=== PATIENT | male | born 1990 | race American Indian/Alaskan Native ===

== ENCOUNTER 2018-06-08 01:07 | Emergency (ER) | payer SELFPAY ==
[2018-06-08] MEDS ORDERED: NACL 0.9% 1000 ML 1,000 ML IV ONE ×2 (01:16→03:02)
--- NOTE | 2018-06-08 01:27 | Emergency Department Report ---
History of Present Illness - General Chief Complaint: Overdose Stated Complaint: POSS OVERDOSE Time Seen by Provider: 06/08/18 01:16 Source: patient, EMS Mode of arrival: Stretcher Limitations: Other - History of Present Illness Initial Comments: Mr Nguyen is a 27 year-old man with hx of drug use who presents via EMS after accidental overdose. Injected heroin for the first time tonight. When EMs arrived, he was cyanotic and not breathing. inserted nasal trumpet and started ventilating him. 4mg narcan. Slowly woke up. Now he is AAOx3. reports trying to get high, does not want to hurt himself. Once attempted to harm self 6 years ago , but was "a cry for help." No thoughts of SI now. No HI. no hallucinations. Took xanax by mouth many horus ago. Had three drinks tonight. Was initially combative upon waking up, now is calm. Denies any complaints other than feeling cold. people in hotel put him in the shower to try to wake up him. MD Complaint: accidental overdose - Related Data Allergies Allergy/AdvReac Type Severity Reaction Status Date / Time codeine Allergy Itching Verified 06/08/18 01:08 ED Review of Systems ROS: Stated complaint: POSS OVERDOSE Other details as noted in HPI Comment: All other systems reviewed and negative ED Past Medical Hx - Past Medical History Previous Medical History?: No - Social History Smoking Status: Current Every Day Smoker Substance Use Type: Heroin, Marijuana ED Physical Exam - General Limitations: Other General appearance: alert, in no apparent distress - Head Head exam: Present: atraumatic, normocephalic - Eye Eye exam: Present: normal appearance, PERRL, EOMI. Absent: nystagmus - ENT ENT exam: Present: normal exam, mucous membranes moist - Neck Neck exam: Present: normal inspection. Absent: tenderness, meningismus, lymphadenopathy - Respiratory Respiratory exam: Present: normal lung sounds bilaterally. Absent: respiratory distress, wheezes, rales - Cardiovascular Cardiovascular Exam: Present: regular rate, normal rhythm. Absent: systolic murmur, diastolic murmur, rubs, gallop - GI/Abdominal GI/Abdominal exam: Present: soft. Absent: distended, tenderness, guarding, rebound - Rectal Rectal exam: Present: deferred - Extremities Exam Extremities exam: Present: normal inspection. Absent: tenderness - Back Exam Back exam: Present: normal inspection. Absent: tenderness, CVA tenderness (R), CVA tenderness (L) - Neurological Exam Neurological exam: Present: alert, oriented X3 - Psychiatric Psychiatric exam: Present: normal affect, normal mood - Skin Skin exam: Present: warm, dry, intact, normal color. Absent: rash ED Course Vital Signs 06/08/18 06/08/18 06/08/18 01:11 02:00 03:00 Temperature 99.5 F 99.5 F Pulse Rate 117 H 109 H 96 H Respiratory 20 20 20 Rate Blood Pressure 147/89 Blood Pressure 138/76 115/78 [Right] O2 Sat by Pulse 93 96 96 Oximetry 06/08/18 06/08/18 04:00 05:00 Temperature 99.0 F Pulse Rate 96 H 93 H Respiratory 20 20 Rate Blood Pressure Blood Pressure 115/60 116/70 [Right] O2 Sat by Pulse 98 98 Oximetry ED Medical Decision Making - Lab Data Result diagrams: 06/08/18 01:28 06/08/18 01:28 - EKG Data 06/08/18 01:11 HR 108, sinus, normal axis, intervals wnl, lateral TWIs, no previous for comparison. No chest pain. - Radiology Data EXAM: XR CHEST 1V AP HISTORY: Overdose TECHNIQUE: A single view of the chest was submitted. FINDINGS: The heart size and mediastinum appear normal. The lungs are clear. There is no evidence of congestion or effusion. The skeletal structures are well-maintained. IMPRESSION: Within normal limits. - Medical Decision Making Mr Nguyen is a 27 year-old man who presents after overdose. Found with a pulse, apneic, cyanotic by EMS. Ventilated, given 4mg narcan. now AAOx3. Well appearing. Exam with mild tachycardia. Givign fluids. EKG sinus tach with normal intervals. not suicide attempt. Accidental overdose. Laboratory work-up is pending. Patient will need to be observed for four hours. If labs, CXR are wnl and patient does not require further administration of narcan, can be safely dispositioned back home at 5am. Care signed out to Dr. Carey. Will make note of any changes, otherwise plan as above. Critical care attestation.: If time is entered above; I have spent that time in minutes in the direct care of this critically ill patient, excluding procedure time. ED Disposition Clinical Impression: Accidental overdose Qualifiers: Encounter type: initial encounter Qualified Code(s): T50.901A - Poisoning by unspecified drugs, medicaments and biological substances, accidental ( unintentional), initial encounter Disposition: TO HOME OR SELFCARE Is pt being admited?: No Does the pt Need Aspirin: No Condition: Stable Instructions: Benzodiazepine Abuse (ED), Narcotic Abuse (ED) Referrals: PRIMARY CARE,MD [Primary Care Provider] - 3-5 Days
--- NOTE | 2018-06-08 01:46 | XRay Report ---
FINAL REPORT EXAM: XR CHEST 1V AP HISTORY: Overdose TECHNIQUE: A single view of the chest was submitted. FINDINGS: The heart size and mediastinum appear normal. The lungs are clear. There is no evidence of congestion or effusion. The skeletal structures are well-maintained. IMPRESSION: Within normal limits.
[2018-06-08 01:55] LABS: Basophils # (Auto) 0.1 K/mm3 (0.0-0.1); Eosinophils # (Auto) 0.1 K/mm3 (0.0-0.4); Eosinophils % (Auto) 1.5 % (0.0-4.3); Hematocrit 44.6 % (35.5-45.6); Hemoglobin 15.3 gm/dl (11.8-15.2); Lymphocytes # (Auto) 2.4 K/mm3 (1.2-5.4); Lymphocytes % (Auto) 24.1 % (13.4-35.0); Mean Corpuscular HGB Conc 34 % (32-34); Mean Corpuscular Hemoglobin 33 pg (28-32); Mean Corpuscular Volume 97 fl (84-94); Monocytes # (Auto) 1.1 K/mm3 (0.0-0.8); Monocytes % (Auto) 10.9 % (0.0-7.3); Platelet Count 279 K/mm3 (140-440); Red Blood Count 4.62 M/mm3 (3.65-5.03); Red Cell Distribution Width 12.6 % (13.2-15.2)
[2018-06-08 02:24] LABS: Alanine Aminotransferase 44 units/L (7-56); Albumin 4.2 g/dL (3.9-5); BUN/Creatinine Ratio 14; Blood Urea Nitrogen 17 mg/dL (9-20); Calcium 8.7 mg/dL (8.4-10.2); Hemolysis Index 1
[2018-06-08 03:40] LABS: Bilirubin,Urine NEG (Negative); Blood,Urine NEG (Negative); Color,Urine Yellow (Yellow); Hyaline Casts,Urine 32 /LPF; Mucus,Urine FEW /HPF; Urobilinogen,Urine < 2.0 mg/dL (<2.0)
[2018-06-08 03:43] LABS: Cocaine Screen,Urine PRESUMPTIVE NEGATIVE; Methadone Screen,Urine PRESUMPTIVE NEGATIVE
[2018-06-08 04:11] LABS: Amphetamine Screen,Urine PRESUMPTIVE POSITIVE; Benzodiazepines Screen,Urine PRESUMPTIVE POSITIVE; Cannabinoid Screen,Urine PRESUMPTIVE POSITIVE; Opiate Screen,Urine PRESUMPTIVE POSITIVE
[2018-06-08 05:16] VITALS: BP 116/70
== END 2018-06-08 05:34 | disposition home or self-care (01) ==
LOC: ED 01:07
DX: T40.1X1A Poisoning by heroin, accidental (unintentional), initial encounter (principal); F17.200 Nicotine dependence, unspecified, uncomplicated; F12.10 Cannabis abuse, uncomplicated; Z88.4 Allergy status to anesthetic agent; Y92.59 Other trade areas as the place of occurrence of the external cause
CPT/HCPCS: 36415; 71045; 80053; 80307; 81001; 84484; 85025; 93005; 93010; 99285; G0480; J7030; 80320